=== PATIENT | male | born 1965 | race Caucasian/White ===

== ENCOUNTER → 2022-08-16 10:34 | Outpatient (CLI) | payer BC, SELFPAY ==
--- NOTE | 2022-08-16 | DI.MRI.S_ITS ---
PROCEDURE: MR HEAD/BRAIN WO/W CON INDICATIONS: VERTIGO TECHNIQUE: Noncontrast axial T1 spin echo, axial T2 fast spin echo, sagittal and axial FLAIR, coronal T2 fast spin echo, axial gradient echo, axial diffusion and ADC through the brain. After the administration of contrast, axial and coronal and sagittal 3D VIBE or T1 spin echo with fat saturation through the brain. COMPARISON: None. FINDINGS: Image quality: Excellent. CSF Spaces: Basal cisterns are patent. No extra-axial fluid collections. Ventricles are normal in size and shape. Brain: Mild chronic microvascular ischemic changes and global cerebral volume loss. No restricted diffusion. No mass effect or midline shift. No unexpected intracranial susceptibility or enhancement. Skull and face: Calvarial marrow is normal in signal. Orbits appear normal. Sinuses: Sinuses and mastoids appear clear. IMPRESSION: No acute finding. Mild loss and chronic microvascular ischemic changes. Dictated by: Shilo Antonio M.D. on 08/16/2022 at 11:34 Approved by: Shilo Antonio M.D. on 08/16/2022 at 11:36
== END ==
PROVIDERS: PCP Internal Medicine; Referring Provider Internal Medicine; Visit Provider Internal Medicine
DX: R42 Dizziness and giddiness (principal)
CPT/HCPCS: 70553